=== PATIENT | female | born 1995 | race Caucasian/White ===

== ENCOUNTER 2017-04-02 14:22 | Emergency (ER) | payer MEDICAID, OTHER ==
[~2017-04-02] VITALS: Wt 45.0 kg
[2017-04-02] MEDS ORDERED: morphine 4 MG/ML VIAL IM STA (15:45)
[2017-04-02] MEDS ORDERED: SOD CHLORIDE 0.9% 500 ML IV STA (16:24)
[2017-04-02] MEDS ORDERED: ONDANSETRON 4 MG INJ ONE (16:30)
[2017-04-02] MEDS ORDERED: ONDANSETRON 4 MG INJ IV STA (16:34)
[2017-04-02 16:40] LABS: BASOPHIL # 0.1 10^3/ul (0.0-0.1); BASOPHILS % 0.4 % (0.0-2.0); EOSINOPHILS # 0.1 10^3/ul (0.0-0.5); EOSINOPHILS % 0.5 % (0.0-7.0); HEMATOCRIT 37.2 % (37.0-47.0); HEMOGLOBIN 12.1 g/dl (12.0-16.0); LYMPHOCYTES # 1.2 10^3/ul (0.8-2.9); LYMPHOCYTES % 8.6 % (15.0-51.0); MEAN CORPUSCULAR HEMOGLOBIN 26.9 pg (29.0-33.0); MEAN CORPUSCULAR HGB CONC 32.5 g/dl (32.0-37.0); MEAN CORPUSCULAR VOLUME 82.7 fl (82.0-101.0); MEAN PLATELET VOLUME 12.2 fl (7.4-10.4); MONOCYTE # 0.6 10^3/ul (0.3-0.9); MONOCYTES % 4.5 % (0.0-11.0); NEUTROPHILS % 85.5 % (39.0-77.0); PLATELET COUNT 225 10^3/UL (140-415); RED CELL DISTRIBUTION WIDTH 14.7 % (11.5-14.5); WHITE BLOOD COUNT 13.4 10^3/ul (4.8-10.8)
[2017-04-02] MEDS ORDERED: morphine 4 MG/ML VIAL IV STA (16:49)
[2017-04-02 17:23] LABS: ADD UMIC YES; UR ASCORBIC ACID NEGATIVE (NEGATIVE); UR BACTERIA FEW /HPF (NONE SEEN); UR BILIRUBIN (Dip) NEGATIVE (NEGATIVE); UR BLOOD (Dip) NEGATIVE (NEGATIVE); UR CLARITY SLIGHTLY CLOUDY (CLEAR); UR COLOR YELLOW (YELLOW); UR GLUCOSE (Dip) NEGATIVE (NEGATIVE); UR KETONES (Dip) TRACE mg/dL (NEGATIVE); UR LEUKOCYTE ESTERASE (Dip) 1+ Leu/ul (NEGATIVE); UR MUCUS FEW /HPF (NONE SEEN); UR NITRITE (Dip) NEGATIVE (NEGATIVE); UR RBC 1 /HPF (0-5); UR SQUAMOUS EPITHELIAL CELL FEW /HPF (FEW); UR TOTAL PROTEIN (Dip) NEGATIVE (NEGATIVE); UR UROBILINOGEN (Dip) NEGATIVE (NEGATIVE)
--- NOTE | 2017-04-02 18:26 | RADRPT ---
PROCEDURE: US OB. CLINICAL INDICATION: Pelvic pain. TECHNIQUE: Transabdominal and transvaginal views of the pelvis are available for review. COMPARISON: No prior studies are available for comparison. FINDINGS: A single live intrauterine is seen. The mean gestational sac diameter is 5.5 cm. [place]-rump length:4.3 cm heart rate:163 beats per minute Ultrasound estimated gestational age: 11 weeks 1 day Estimated date of delivery: 10/21/2017. The uterus measures 9.3 x 0.9 x 10.2 cm in size. The right ovary measures 3.2 x 2 x 3.2 cm in size in the left ovary measures 5 x 3.3 x 3.8 cm in size. Simple bilateral ovarian cysts are seen which may represent a follicles. The right ovarian cyst measures 2.3 x 1.6 x 2.2 cm in size and the left ovarian cyst measures 2.6 x 1.9 x 2.1 cm in size. No ovarian or adnexal mass lesion is seen. There is no free fluid. IMPRESSION: Single live intrauterine with an estimated gestational age of 11 weeks and 1 day. RPTAT: HPNM Physician Tara Date Time Electronically viewed and signed by Physician Tara on 04/02/2017 18:26 /
[2017-04-02] MEDS ORDERED: ACETAMINOPHEN 500 MG TAB PO STA (18:59)
[2017-04-02] MEDS ORDERED: CEFTRIAXONE 1 GM/50 ML (PMX) 50 ML IVPB ONE (19:00)
[2017-04-02] MEDS ORDERED: PRENAT PO (19:02)
[2017-04-02] MEDS ORDERED: ACET-141 PO (19:02)
[2017-04-02] MEDS ORDERED: ONDA4TAB14 PO (19:02)
[2017-04-02] MEDS ORDERED: CEPH-443 PO (19:05)
--- NOTE | 2017-04-02 19:37 | ERD ---
ER Documentation Chief Complaint Date/Time DATE: 04/02/17 TIME: 19:30 Chief Complaint ABD PAIN WITH N/V DX WITH OVARIAN CYST HPI This 21-year-old female presents with left lower quadrant abdominal pain as well as some nausea and vomiting for the last couple days. She is actually feeling feeling the pain intermittently for the last 2 weeks. She denies any fever and chills. Has had some dysuria. No discharge. States this pain feels similar to when she was last diagnosed with an ovarian cyst. The pain is also in the same location peer ROS All systems reviewed and are negative except as per history of present illness. Medications Home Meds Active Scripts Cephalexin* (Keflex*) 500 Mg Capsule, 500 MG PO QID for 3 Days, CAP Prov:TOMER NESS DO 04/02/17 Multivit/Min/Fol Ac/Iron/Pren* ( S*) 1 Tab Tab, 1 TAB PO DAILY, #90 TAB Prov:TOMER NESS DO 04/02/17 Ondansetron (Ondansetron Odt) 4 Mg Tab.rapdis, 4 MG PO Q6H Y for NAUSEA AND/OR VOMITING, #10 TAB Prov:TOMER NESS DO 04/02/17 Acetaminophen* (Acetaminophen*) 500 MG Extra Strength Tablet, 500 MG PO Q5H Y for PAIN AND OR ELEVATED TEMP, #20 TAB Prov:TOMER NESS DO 04/02/17 Reported Medications [None] No Conflict Check 12/27/10 Allergies Allergies: Coded Allergies: No Known Drug Allergy (Verified Allergy, Mild, 12/27/10) PMhx/Soc Medical and Surgical Hx: pt denies Medical Hx, pt denies Surgical Hx History of Surgery: No Anesthesia Reaction: No Hx Neurological Disorder: No Hx Respiratory Disorders: No Hx Cardiac Disorders: No Hx Psychiatric Problems: No Hx Miscellaneous Medical Probl: No Hx Alcohol Use: No Hx Substance Use: No Hx Tobacco Use: No Smoking Status: Never smoker Physical Exam Vitals Vital Signs Date Time Temp Pulse Resp B/P Pulse Ox O2 Delivery O2 Flow Rate FiO2 04/02/17 14:31 98.3 71 18 93/61 99 Physical Exam Const: [] Mild distress, smiling but appears slightly uncomfortable and touching her own left lower quadrant Head: Atraumatic Eyes: Normal Conjunctiva ENT: Normal External Ears, Nose and Mouth. Neck: Full range of motion..~ No meningismus. Resp: Clear to auscultation bilaterally Cardio: Regular rate and rhythm, no murmurs Abd: Soft, mild left lower quadrant tenderness without guarding or rebound, non distended. Normal bowel sounds Skin: No petechiae or rashes Back: No midline or flank tenderness Ext: No cyanosis, or edema Neur: Awake and alert and oriented 3, no focal deficit Psych: Normal Mood and Affect Result Diagram: 04/02/17 1484 Results 24 hrs Laboratory Tests Test 04/02/17 16:20 04/02/17 16:34 Urine Color YELLOW Urine Clarity SLIGHTLY CLOUDY Urine pH 7.0 Urine Specific [place] 1.020 Urine Ketones TRACEmg/dL Urine Nitrite NEGATIVEmg/dL Urine Bilirubin NEGATIVEmg/dL Urine Urobilinogen NEGATIVEmg/dL Urine Leukocyte Esterase 1+Evangelina/ul Urine Microscopic RBC 1/HPF Urine Microscopic WBC 4/HPF Urine Squamous Epithelial Cells FEW/HPF Urine Bacteria FEW/HPF Urine Mucus FEW/HPF Urine Hemoglobin NEGATIVEmg/dL Urine Glucose NEGATIVEmg/dL Urine Total Protein NEGATIVEmg/dl White Blood Count 13.410^3/ul Red Blood Count 4.5010^6/ul Hemoglobin 12.1g/dl Hematocrit 37.2% Mean Corpuscular Volume 82.7fl Mean Corpuscular Hemoglobin 26.9pg Mean Corpuscular Hemoglobin Concent 32.5g/dl Red Cell Distribution Width 14.7% Platelet Count 10332^3/UL Mean Platelet Volume 12.2fl Neutrophils % 85.5% Lymphocytes % 8.6% Monocytes % 4.5% Eosinophils % 0.5% Basophils % 0.4% Nucleated Red Blood Cells % 0.0/100WBC Neutrophils # (Manual) 1110^3/ul Lymphocytes # 1.210^3/ul Monocytes # 0.610^3/ul Eosinophils # 0.110^3/ul Basophils # 0.110^3/ul Nucleated Red Blood Cells # 0.010^3/ul Beta HCG, Quantitative 60637.0mIU/ml Current Medications Medications (Trade) Dose Ordered Sig/Juan Carlos Route PRN Reason Start Time Stop Time Status Last Admin Dose Admin Morphine Sulfate 4 mg 4 mg ONCE STAT IM 04/02/17 15:45 04/02/17 15:49 DC 04/02/17 16:14 Sodium Chloride (NS) 500 ml @ 500 mls/hr Q1H STAT IV 04/02/17 16:24 04/02/17 17:23 DC 04/02/17 16:29 Ondansetron HCl (Zofran Inj) 4 mg STK-MED ONCE .ROUTE 04/02/17 16:30 04/02/17 16:31 DC Ondansetron HCl (Zofran Inj) 4 mg ONCE STAT IV 04/02/17 16:34 04/02/17 16:35 DC 04/02/17 16:35 Morphine Sulfate 4 mg 4 mg ONCE STAT IV 04/02/17 16:49 04/02/17 16:50 DC 04/02/17 16:54 Ceftriaxone Sodium (Rocephin) 50 ml @ 100 mls/hr ONCE ONCE IVPB 04/02/17 19:00 04/02/17 19:29 DC Acetaminophen (Tylenol Tab) 1,000 mg ONCE STAT PO 04/02/17 18:59 04/02/17 19:01 DC Procedures/MDM New diagnosis of in 21-year-old female. Also has left ovarian cyst persisting and urinary tract infection. Much of the pain may have been secondary to urinary tract infection and has been growing. Urine cultures obtained as well. I gave her a gram of Rocephin in the emergency room. Also was given morphine for her pain which cured her pain. Ultrasound shows 11 week consistent with beta-hCG. She is also hydrated with a liter of normal saline. She is feeling much better and has stable vital signs. She does have a primary care physician who was in the process of getting her lay out inspector for her pain. I have instructed her to call first thing on Tuesday morning to make sure that she gets an die caster for care. Her and her significant other are present at the bedside and they are happy that they are having another baby. Discharging her with Tylenol as well as Keflex for symptoms. Also giving her Zofran as needed and vitamins. Ultrasound interpretation: Single intrauterine live 11 week with positive heart tones and good movement. Left ovarian cyst is also noted Departure Diagnosis: Primary Impression: UTI (urinary tract infection) during Additional Impressions: Ovarian cyst Condition: Stable Patient Instructions: Understanding Urinary Tract Infections (UTIs), Ovarian Cyst, , New Dx Referrals: [facility] YOU HAVE RECEIVED A MEDICAL SCREENING EXAM AND THE RESULTS INDICATE THAT YOU DO NOT HAVE A CONDITION THAT REQUIRES URGENT TREATMENT IN THE EMERGENCY DEPARTMENT. FURTHER EVALUATION AND TREATMENT OF YOUR CONDITION CAN WAIT UNTIL YOU ARE SEEN IN YOUR DOCTORS OFFICE WITHIN THE NEXT 1-2 DAYS. IT IS YOUR RESPONSIBILITY TO MAKE AN APPOINTMENT FOR FOLOW-UP CARE. IF YOU HAVE A PRIMARY DOCTOR --you should call your primary doctor and schedule an appointment IF YOU DO NOT HAVE A PRIMARY DOCTOR YOU CAN CALL OUR PHYSICIAN REFERRAL HOTLINE AT IF YOU CAN NOT AFFORD TO SEE A PHYSICIAN YOU CAN CHOSE FROM THE FOLLOWING [facility] [address] [facility]. [facility] [address] [facility] [facility] [address] [facility] [facility] [address] [facility]. [facility] [address] [facility] [facility]. [address] Additional Instructions: Call your primary care doctor TOMORROW for an appointment during the next 1-2 days. Get a referral for an die caster. See the doctor sooner or return here if your condition worsens before your appointment time. TOMER NESS DO Apr 02, 2017 19:37
[2017-04-02 20:06] VITALS: BP 109/58; PULSE 78; RESP 20; TEMP 98.2
== END 2017-04-02 20:08 | disposition home or self-care (01) ==
LOC: FTE 14:22
DX: O23.41 Unspecified infection of urinary tract in pregnancy, first trimester (principal); O34.81 Maternal care for other abnormalities of pelvic organs, first trimester; R10.32 Left lower quadrant pain; R10.2 Pelvic and perineal pain; Z3A.11 11 weeks gestation of pregnancy
CPT/HCPCS: 36415; 76801; 81001; 84702; 85025; 86900; 86901; 96372; 96374; 96375; J0696; J2270; J2405; J7040; Z7502; Z7610